=== PATIENT | female | born 1955 | race Caucasian/White ===

== ENCOUNTER → 2017-03-04 | Outpatient (CLI) | payer BC ==
[2017-03-04 15:31] LABS: HEMOGLOBIN 12.2 g/dL (12.2-16.2); LYMPH # 2.8 K/mm3 (0.7-4.5); LYMPH % 29.5 % (10-50.0)
[2017-03-04 18:04] LABS: BUN 11 mg/dL (7-18)
[2017-03-04 18:15] LABS: GFR (ESTIMATED) 72 ML/MIN (59-)
[2017-03-06 08:39] LABS: RA Latex Turbid. <10.0 IU/mL (0.0-13.9)
[2017-03-07 18:36] LABS: Antinuclear Antibodies, IFA Positive (.)
[2017-03-08 03:37] LABS: CCP Antibodies IgG/IgA 5 units (0-19)
== END ==
LOC: LAB 15:04
PROVIDERS: Nurse Practitioner Family
DX: M25.50 Pain in unspecified joint (principal)

== ENCOUNTER → 2017-03-08 | Outpatient (CLI) | payer BC | LOC: LAB 08:36 | DX: M25.50 Pain in unspecified joint (principal) ==